=== PATIENT | male | born 1995 ===

== ENCOUNTER 2017-12-21 07:15 | Inpatient (IN) | payer MEDICAID, OTHER ==
[2017-12-21 07:23] VITALS: BMI 19.3
[2017-12-21] MEDS ORDERED: Sodium Chloride 0.9% 1,000 ML IV STA ×3 (07:37→09:54)
--- NOTE | 2017-12-21 08:09 | ED PDOC ---
Arrival/HPI - General Historian: Patient - History of Present Illness Symptom Course: Worsening Activities at Onset: Rest Context: Sitting, Standing <Ilia Vee - Last Filed: 12/21/17 10:41> - History of Present Illness Time/Duration: 24 hours Symptom Onset: Sudden Quality: Cramping Severity Level: Severe Context: Home <Alon Pulliam - Last Filed: 12/21/17 16:04> - General Chief Complaint: Weakness/Neurological Deficit Time Seen by Provider: 12/21/17 07:22 - History of Present Illness Narrative History of Present Illness (Text): 12/21/17 08:05 Patient is a 22M with no PMH who comes to the ED with a CC of feeling weak, fevers and chills. Patient states that yesterday he was feeling fine and playing baseball with his friends at the park. Later in the day he had one episode of diarrhea. He went to sleep and woke up in the morning feeling nauseated. He went to the bathroom, felt weak nauseated, feverish with shaking chills. He also states he has a headache but this is not new for him. He states his legs feel heavy and are difficult to move. (Ilia Vee) Past Medical History - Past History Past History: No Previous - Psychiatric Hx Depression: No Hx Emotional Abuse: No Hx Physical Abuse: No Hx Substance Use: No - Past Surgical History Past Surgical History: No Previous - Anesthesia Hx Anesthesia: No Hx Anesthesia Reactions: No Hx Malignant Hyperthermia: No - Suicidal Assessment Feels Threatened In Home Enviroment: No <Ilia Vee - Last Filed: 12/21/17 10:41> - Provider Review Nursing Documentation Reviewed: Yes - Travel History Have you recently traveled outside [place] w/in the past 3 mons?: No - Infectious Disease Hx of Infectious Diseases: None - Tetanus Immunization Tetanus Immunization: Up to Date <Alon Pulliam - Last Filed: 12/21/17 16:04> Family/Social History - Physician Review Nursing Documentation Reviewed: Yes Family/Social History: Unknown Family HX Smoking Status: Never Smoked Hx Alcohol Use: Yes Frequency of alcohol use: Socially Hx Substance Use: No Hx Substance Use Treatment: No <Ilia Vee - Last Filed: 12/21/17 10:41> Allergies/Home Meds <Ilia Vee - Last Filed: 12/21/17 10:41> <Alon Pulliam - Last Filed: 12/21/17 16:04> Allergies/Adverse Reactions: Allergies No Known Allergies Allergy (Verified 01/18/14 12:14) Home Medications: Home Meds Medication Instructions Recorded Confirmed No Known Home Med [No Known Home 01/18/14 12/21/17 Med] Review of Systems - Review of Systems Constitutional: Fatigue, Fevers Eyes: absent: Photophobia ENT: Normal Respiratory: absent: SOB, Cough, Wheezing Cardiovascular: absent: Chest Pain, Syncope Gastrointestinal: Diarrhea, Nausea. absent: Abdominal Pain, Vomiting, Hematochezia, Hematemesis Genitourinary Male: Normal Musculoskeletal: Neck Pain. absent: Arthralgias, Back Pain Skin: absent: Rash Neurological: Headache Endocrine: Normal Hemo/Lymphatic: Normal Psychiatric: Normal <NandaIlia - Last Filed: 12/21/17 10:41> - Review of Systems Eyes: absent: Vision Changes Neurological: absent: Dizziness, Facial Droop, Disequilibrium <Alon Pulliam - Last Filed: 12/21/17 16:04> Physical Exam Vital Signs Reviewed: Yes Temperature: Afebrile Blood Pressure: Normal Pulse: Regular Respiratory Rate: Normal Appearance: Positive for: Well-Appearing, Non-Toxic, Comfortable Pain Distress: None Mental Status: Positive for: Alert and Oriented X 3 - Systems Exam Head: Present: Atraumatic, Normocephalic Pupils: Present: PERRL Extroacular Muscles: Present: EOMI Conjunctiva: Present: Normal Mouth: Present: Moist Mucous Membranes Neck: Present: Normal Range of Motion Respiratory/Chest: Present: Clear to Auscultation, Good Air Exchange. No: Respiratory Distress, Accessory Muscle Use Cardiovascular: Present: Regular Rate and Rhythm, Normal S1, S2. No: Murmurs Abdomen: Present: Normal Bowel Sounds. No: Tenderness, Distention, Peritoneal Signs Upper Extremity: Present: Normal Inspection. No: Cyanosis, Edema Lower Extremity: Present: Normal Inspection. No: Edema Neurological: Present: GCS=15, CN II-XII Intact, Speech Normal, Other (able to wiggle his toes. Lower extremity 3+,4-/5) Skin: Present: Warm, Dry, Normal Color. No: Rashes Psychiatric: Present: Alert, Oriented x 3, Normal Insight, Normal Concentration <Ilia Vee - Last Filed: 12/21/17 10:41> Vital Signs Temp Pulse Resp BP Pulse Ox 12/21/17 10:14 71 18 118/79 100 12/21/17 07:25 97.5 F L 60 18 109/75 100 Medical Decision Making - Lab Interpretations I have reviewed the lab results: Yes <Ilia Vee - Last Filed: 12/21/17 10:41> Re-evaluation Time: 11:45 Reassessment Condition: Improved - Critical Care Critical Care Minutes: 30 minutes Critical Care Time: Excluding Proc Time - Lab Interpretations Interpretation: Abnormal lab values (elevated CK, elevated LFTs) - RAD Interpretation Flooring Sales Manager: Radiologist <Alon Pulliam - Last Filed: 12/21/17 16:04> ED Course and Treatment: 12/21/17 08:13 22M with lower extremity weakness and generalized fatigue. - cbc, cmp, mag, cpk, vbg, ebv, blood cultures - chest xray, head CT - 2L saline bolus 12/21/17 09:37 - head CT negative - 5000+ CK - patient has rhabdo - additional 1L NS bolus - call put out to hospitalist for admission (Ilia Vee) 12/21/17 08:27 Patient seen with the resident. I performed a physical exam of the patient and discussed their management with resident. I have reviewed the resident note and agree with the assessment and plan of care. Vital signs reviewed: decr BP alert/awake, GCS = 15, oriented x 3, resting in bed, uncomfortable, cooperative , interactive NC/AT PERRLA, EOMI, sclera anicteric, no nystagmus, no photophobia; visual field intact b/l NECK: intact ROM, no midline tenderness, no nuchal rigidity, no meningeal signs CTA b/l, no w/r/r +S1, +S2, no m/r/r +BS, soft/nd/nt, well nourished patient; thin male, no gaiens's sign, no mcburney's point tenderness, no organomeagly noted ext: intact ROM, strength 5/5 grossly intact in all limbs, neurovasc intact b/l SKIN: cap refill < 1 sec, no ulcerations, no petechiae, no rashes NEURO: CNII-XII WNL, no facial asymmetries, no slurr speech, oriented x 3; strength lower ext +3-4/5 NIH stroke scale ~ 2 Impression: lower extremity weakness and generalized fatigue. I have considered all the differential diagnosis regarding the patient's chief medical complaints/clinical findings, including but are not limited to: lower extremity weakness and generalized fatigue; r/o infection; unlikely neurologic cause; r/o musculoskeletal A/P: lower extremity weakness and generalized fatigue. -- Chest X-ray -- Head CT -- labs -- Supportive Care -- Observe 12/21/17 10:00 pt felt improved with fluids pt is now able to move all limbs with ease and also able to ambulate with an abnl elevated CK, pt likely with rhabdomyolysis, will recommend continued fluids and will recommend patient for admission pt is made aware of his medical results agrees with admission/observation HEAD CT Dictator : Jack Angel MD Report Date : 12/21/2017 09:34:06 Impression: No acute findings 12/21/17 10:39: Case discussed in detail with Dr. Couch, hospitalists utility person, made aware, agrees with admission 1130 pt is comfortable pt's vital signs are steady pt is made aware of his medical results agrees with admission (Alon Pulliam) - Critical Care Narrative Critical Care (Text): 12/21/17 15:59 critical care time: 30min, excluding procedure time, excluding time teaching residents/students/mid-level providers; including initial eval/diagnosis, diagnostic interpretation, re-eval, consultations, final disposition (Alon Pulliam) - Lab Interpretations Lab Results: 12/21/17 08:06 12/21/17 08:55 Lab Results 12/21/17 10:07: Urine Opiates Screen Negative, Urine Methadone Screen Negative, Ur Barbiturates Screen Negative, Ur Phencyclidine Scrn Negative, Ur Amphetamines Screen Negative, U Benzodiazepines Scrn Negative, U Oth Cocaine Metabols Negative, U Cannabinoids Screen Negative 12/21/17 10:07: Urine Color Yellow, Urine Appearance Sl cloudy, Urine pH 7.0, Ur Specific Cashiers 1.020, Urine Protein Trace H, Urine Glucose (UA) Negative, Urine Ketones Negative, Urine Blood Trace-lysed H, Urine Nitrate Negative, Urine Bilirubin Negative, Urine Urobilinogen 0.2, Ur Leukocyte Esterase Small H , Urine RBC 0 - 2, Urine WBC Tntc, Ur Epithelial Cells 1 - 3, Urine Bacteria Trace, Urine Other Mucus 12/21/17 08:55: TSH 3rd Generation 1.61 12/21/17 08:55: Sodium 142, Chloride 105, Potassium 3.8, Carbon Dioxide 28, Anion Gap 12, BUN 14, Creatinine 0.8, Est GFR ( Amer) > 60, Est GFR (Non- Af Amer) > 60, Random Glucose 87, Calcium 9.6, Total Bilirubin 1.1, AST 123 H, ALT 57 H, Alkaline Phosphatase 79, Total Creatine Kinase 5890 H, CK-MB (CK-2) 2.9, CK-MB (CK-2) % Cancelled, Total Protein 7.7, Albumin 4.4, Globulin 3.3, Albumin/Globulin Ratio 1.3, Lipase 80 12/21/17 08:06: WBC 8.5, RBC 5.03, Hgb 14.1, Hct 41.4 L, MCV 82.3, MCH 28.0, MCHC 34.1, RDW 13.1, Plt Count 247, MPV 11.4 H, Gran % 48.5 L, Lymph % (Auto) 38.5 H, Metcalfe % (Auto) 8.6 H, Eos % (Auto) 4.2, Baso % (Auto) 0.2, Gran # 4.12, Lymph # (Auto) 3.3, Metcalfe # (Auto) 0.7 H, Eos # (Auto) 0.4, Baso # (Auto) 0.02 12/21/17 08:00: pO2 27 L, VBG pH 7.32, VBG pCO2 56.0, VBG HCO3 28.9 H, VBG Total CO2 30.6 H, VBG O2 Sat (Calc) 53.9, VBG Base Excess 1.6, VBG Potassium 4.0 , Sodium 139.0, Chloride 105.0, Glucose 81, Lactate 1.5, FiO2 21.0, Venous Blood Potassium 4.0 - RAD Interpretation Narrative RAD Interpretations (Text): 12/21/17 16:02 CXR - NAD Head Ct - no acute bleed/masses, as per radiology (Alon Pulliam) Radiology Orders: 12/21/17 07:48 HEAD W/O CONTRAST [CT] Stat 12/21/17 08:15 CHEST PORTABLE [RAD] Stat - Medication Orders Current Medication Orders: Sodium Chloride (Sodium Chloride 0.9%) 1,000 mls @ 300 mls/hr IV .Q3H20M GERARDO Last Admin: 12/21/17 12:37 Dose: 300 mls/hr eMAR Start Stop Document 12/21/17 12:37 GMD (Rec: 12/21/17 12:37 GMD [id number]) Intravenous Solution Start Date 12/21/17 Start Time 12:37 Pantoprazole Sodium (Protonix Ec Tab) 40 mg PO DAILY GERARDO Discontinued Medications Famotidine (Pepcid) 20 mg IVP STAT STA Stop: 12/21/17 07:39 Last Admin: 12/21/17 08:20 Dose: 20 mg IVP Administration Document 12/21/17 08:20 RG (Rec: 12/21/17 08:47 RG [id number]) Charges for Administration # of IVP Administrations 1 Sodium Chloride (Sodium Chloride 0.9%) 1,000 mls @ 999 mls/hr IV .Q1H1M STA Stop: 12/21/17 08:37 Last Admin: 12/21/17 08:26 Dose: 999 mls/hr eMAR Start Stop Document 12/21/17 08:26 RG (Rec: 12/21/17 08:45 RG [id number]) Intravenous Solution Start Date 12/21/17 Start Time 08:26 Sodium Chloride (Sodium Chloride 0.9%) 1,000 mls @ 999 mls/hr IV .Q1H1M STA Stop: 12/21/17 08:38 Last Admin: 12/21/17 08:27 Dose: 999 mls/hr eMAR Start Stop Document 12/21/17 08:27 RG (Rec: 12/21/17 08:46 RG [id number]) Intravenous Solution Start Date 12/21/17 Start Time 08:27 Sodium Chloride (Sodium Chloride 0.9%) 1,000 mls @ 999 mls/hr IV .Q1H1M STA Stop: 12/21/17 10:54 Last Admin: 12/21/17 11:08 Dose: 999 mls/hr eMAR Start Stop Document 12/21/17 11:08 GMD (Rec: 12/21/17 11:08 GMD [id number]) Intravenous Solution Start Date 12/21/17 Start Time 11:08 End Date 12/21/17 End time 12:09 Total Infusion Time 61 Ketorolac Tromethamine (Toradol) 15 mg IVP STAT STA Stop: 12/21/17 09:21 Last Admin: 12/21/17 09:30 Dose: Ondansetron HCl (Zofran Inj) 4 mg IVP STAT STA Stop: 12/21/17 07:39 Last Admin: 12/21/17 08:22 Dose: 4 mg IVP Administration Document 12/21/17 08:22 RG (Rec: 12/21/17 08:48 RG [id number]) Charges for Administration # of IVP Administrations 1 - PA / CULINARY SPECIALIST / Resident Statement MD/DO has reviewed & agrees with the documentation as recorded. MD/ has examined the patient and agrees with the treatment plan. <Ilia Vee - Last Filed: 12/21/17 10:41> - Scribe Statement The provider has reviewed the documentation as recorded by the Scribe <Alon Pulliam - Last Filed: 12/21/17 16:04> - Scribe Statement Danielle Monte Provider Scribe Attestation: All medical record entries made by the Scribe were at my direction and personally dictated by me. I have reviewed the chart and agree that the record accurately reflects my personal performance of the history, physical exam, medical decision making, and the department course for this patient. I have also personally directed, reviewed, and agree with the discharge instructions and disposition. (Alon Pulliam) Disposition/Present on Arrival - Present on Arrival Any Indicators Present on Arrival: No History of DVT/PE: No History of Uncontrolled Diabetes: No Urinary Catheter: No History of Decub. Ulcer: No History Surgical Site Infection Following: None - Disposition Have Diagnosis and Disposition been Completed?: Yes Disposition Time: 09:52 Patient Plan: Observation <Ilia Vee - Last Filed: 12/21/17 10:41> - Disposition Patient Plan: Admission <Alon Pulliam - Last Filed: 12/21/17 16:04> - Disposition Diagnosis: Rhabdomyolysis, Dehydration, Weakness Disposition: HOSPITALIZED Patient Problems: Current Active Problems Problem Status Onset Rhabdomyolysis Acute Condition: STABLE
[2017-12-21 08:29] LABS: VENOUS BLOOD GAS BASE EXCESS 1.6 mmol/L (0.0-2.0); VENOUS BLOOD GAS PO2 27 mm/Hg (30-55); VENOUS BLOOD PH 7.32 (7.32-7.43)
[2017-12-21 08:43] LABS: BASO # 0.02 K/mm3 (0.0-2.0); BASO % 0.2 % (0.0-3.0); EOS # 0.4 (0.0-0.7); EOS % 4.2 % (1.5-5.0); GRAN # 4.12 (1.4-6.5); GRAN % 48.5 % (50.0-68.0); HEMOGLOBIN 14.1 g/dL (14.0-18.0); LYMPH # 3.3 (1.2-3.4); LYMPH % 38.5 % (22.0-35.0); MEAN CELL VOLUME 82.3 fl (80.0-105.0); MEAN CORPUSCULAR HGB CONC 34.1 g/dl (31.0-37.0); MEAN PLATELET VOLUME 11.4 fl (7.0-11.0); MONO # 0.7 (0.1-0.6); MONO % 8.6 % (1.0-6.0); RBC 5.03 10^6/uL (3.5-6.1); RED CELL DISTRIBUTION WIDTH 13.1 % (11.5-14.5); WHITE BLOOD COUNT 8.5 10^3/ul (4.5-11.0)
[2017-12-21 09:19] LABS: ALB/GLOB RATIO 1.3 (1.1-1.8); ALBUMIN 4.4 g/dL (3.0-4.8); ALT/SGPT 57 U/L (7-56); AST/SGOT 123 U/L (17-59); BLOOD UREA NITROGEN 14 mg/dL (7-21); CALCIUM 9.6 mg/dL (8.4-10.5); GFR AFRICAN-AMERICAN > 60; GFR NON-AFRICAN AMERICAN > 60; LIPASE 80 U/L (23-300)
--- NOTE | 2017-12-21 09:35 | CT ---
CT of the head without contrast History. Lower extremity weakness. Lethargy. Comments. CT of the head was performed without IV contrast. The brain parenchyma is normal. There is no evidence of infarct or hemorrhage. The paranasal sinuses are normal. There are no bony abnormalities. Impression: No acute findings
--- NOTE | 2017-12-21 09:41 | RAD ---
Portable chest History. Weakness, lethargy Comments. A portable film was obtained at 8:24 a.m. 12/21/2017. The heart and mediastinum are normal in size per the lungs are clear. Impression: No active disease
[2017-12-21 09:50] LABS: CK-MB 2.9 ng/mL (0.0-3.6)
[2017-12-21 10:20] LABS: URINE APPEARANCE SL CLOUDY (CLEAR); URINE BILIRUBIN NEGATIVE (NEGATIVE); URINE BLOOD TRACE-LYSED (NEGATIVE); URINE COLOR YELLOW (YELLOW); URINE GLUCOSE (UA) NEGATIVE (NEGATIVE); URINE LEUKOCYTE ESTERASE SMALL Leu/uL (NEGATIVE); URINE PROTEIN TRACE mg/dL (<30 mg/dL); URINE UROBILINOGEN 0.2 E.U./dL (<1 E.U./dL)
[2017-12-21 10:32] LABS: URINE RBC 0 - 2 /hpf (0-2); URINE WBC TNTC /hpf (0-6)
[2017-12-21 10:33] LABS: URINE BACTERIA TRACE (NEG)
[2017-12-21 10:42] LABS: BARBITURATES, UR NEGATIVE (NEGATIVE); BENZODIAZEPINES, UR NEGATIVE (NEGATIVE); OPIATES, UR NEGATIVE (NEGATIVE); PHENCYCLIDINE, UR NEGATIVE (NEGATIVE)
[2017-12-21] MEDS: Sodium Chloride 0.9% 1,000 ML IV SCH ×2 (12:37→19:12)
--- NOTE | 2017-12-21 13:46 | CP.PCM.HP ---
<Krystina Downing - Last Filed: 12/21/17 13:38> History of Present Illness - History of Present Illness History of Present Illness: PGY-2 H&P for hospitalist service 22 yo male with no PMH who comes to the ED with a complaint of feeling weak, fevers and chills. Patient states that he woke and started feeling weak. He went to the bathroom, felt nauseated, feverish with shaking chills. He also states he has a headache but this is not new for him. He states his legs feel heavy and are difficult to move. He reports one episode of diarrhea 2 days ago. Patient states that yesterday he was feeling fine and playing baseball with his friends at the park for about 3 hours. He states that that he has not done anything out of the ordinary over the past few days. He denies sick contacts, recent illnesses of recent travel. Patient states that after receiving fluids in the ED he feels better and can move all extremities. PMH: denies PSH: Denies social history: denies smoking, illicit drug use, occasional alcohol use, last drink was 1 week ago family history: denies allergy: nkda Present on Admission - Present on Admission Any Indicators Present on Admission: No Review of Systems - Review of Systems All systems: reviewed and no additional remarkable complaints except Past Patient History - Past Social History Smoking Status: Never Smoked - PSYCHIATRIC Hx Depression: No Hx Emotional Abuse: No Hx Physical Abuse: No Hx Substance Use: No - SURGICAL HISTORY Hx Surgeries: No - ANESTHESIA Hx Anesthesia: No Hx Anesthesia Reactions: No Hx Malignant Hyperthermia: No Meds Allergies/Adverse Reactions: Allergies Allergy/AdvReac Type Severity Reaction Status Date / Time No Known Allergies Allergy Verified 01/18/14 12:14 Physical Exam - Constitutional Appears: Well, No Acute Distress - Head Exam Head Exam: ATRAUMATIC, NORMAL INSPECTION, NORMOCEPHALIC - Eye Exam Eye Exam: EOMI, Normal appearance - ENT Exam ENT Exam: Mucous Membranes Moist - Respiratory Exam Respiratory Exam: Clear to Auscultation Bilateral, NORMAL BREATHING PATTERN. absent: Rhonchi, Wheezes, Respiratory Distress - Cardiovascular Exam Cardiovascular Exam: REGULAR RHYTHM, +S1, +S2. absent: Tachycardia, Diastolic murmur, Systolic Murmur - GI/Abdominal Exam GI & Abdominal Exam: Normal Bowel Sounds, Soft. absent: Distended, Firm, Guarding, Tenderness - Extremities Exam Extremities exam: Positive for: normal inspection. Negative for: pedal edema, tenderness - Neurological Exam Neurological exam: Alert, Oriented x3 - Expanded Neurological Exam Expanded Patient oriented to: person, place, time Neuro motor strength exam: Left Upper Extremity: 5, Right Upper Extremity: 5, Left Lower Extremity: 5, Right Lower Extremity: 5 - Skin Skin Exam: Dry, Intact, Normal Color, Warm Results - Vital Signs Recent Vital Signs: Last Vital Signs Temp 97.5 F L 12/21/17 07:25 Pulse 71 12/21/17 10:14 Resp 18 12/21/17 10:14 BP 118/79 12/21/17 10:14 Pulse Ox 100 12/21/17 10:14 - Labs Result Diagrams: 12/21/17 08:06 12/21/17 08:55 Assessment & Plan - Assessment and Plan (Free Text) Assessment: 22 yo male with no PMH who is admitted for rhabdomyolysis Plan: rhabdomyolysis - patient CK level in ED was 5890 - he received 3 liter bolus in ED - will continue IVF NS @300cc/ho - repeat CMP and ck after 1 liter of IVF GI ppx- protonix DVT- activity as tolerated <Maida Couch - Last Filed: 12/21/17 16:24> Results - Vital Signs Recent Vital Signs: Last Vital Signs Temp 97.5 F L 12/21/17 07:25 Pulse 71 12/21/17 10:14 Resp 18 12/21/17 10:14 BP 118/79 12/21/17 10:14 Pulse Ox 100 12/21/17 10:14 - Labs Result Diagrams: 12/21/17 08:06 12/21/17 08:55 Attending/Attestation - Attestation I have personally seen and examined this patient.: Yes I have fully participated in the care of the patient.: Yes I have reviewed all pertinent clinical information: Yes Notes (Text): 12/21/17 16:20 Patient was seen and examined with biomedical scientist. 22 yrs old male with no PMH is admitted with Rhabdomylosis, renal functions are normal, will continue IV fluid and will follow up BUN /Creatinin and electrolyte. Etiology of Rhabdomylosis is due to musscle breakdown during basket ball sport . Elevated LFT are due to Rhbdomylosis,(Patient denies alcohol abuse ) will repeat level after IV hydration, Management plan was discussed in detail with patient Education was provided.
[2017-12-21 17:32] LABS: ALB/GLOB RATIO 1.3 (1.1-1.8); ALBUMIN 3.9 g/dL (3.0-4.8); ALT/SGPT 47 U/L (7-56); AST/SGOT 109 U/L (17-59); BLOOD UREA NITROGEN 10 mg/dL (7-21); CALCIUM 9.5 mg/dL (8.4-10.5); GFR AFRICAN-AMERICAN > 60; GFR NON-AFRICAN AMERICAN > 60
--- NOTE | 2017-12-21 19:31 | CARD ---
APPROVED REPORT EKG Measurement Heart [id number] <Conclusion> Sinus bradycardia with sinus arrhythmia with 1st degree AV block ST elevation, probably due to early repolarization Borderline ECG
[2017-12-21 23:16] VITALS: RESP 16
[2017-12-22] MEDS: Sodium Chloride 0.9% 1,000 ML IV SCH (05:36)
[2017-12-22 06:38] LABS: BASO # 0.01 K/mm3 (0.0-2.0); BASO % 0.1 % (0.0-3.0); EOS # 0.4 (0.0-0.7); EOS % 5.6 % (1.5-5.0); GRAN # 2.83 (1.4-6.5); GRAN % 41.6 % (50.0-68.0); LYMPH # 3.2 (1.2-3.4); LYMPH % 46.5 % (22.0-35.0); MEAN CELL VOLUME 83.4 fl (80.0-105.0); MEAN CORPUSCULAR HEMOGLOBIN 27.8 pg (25.0-35.0); MEAN CORPUSCULAR HGB CONC 33.3 g/dl (31.0-37.0); MEAN PLATELET VOLUME 11.1 fl (7.0-11.0); MONO # 0.4 (0.1-0.6); MONO % 6.2 % (1.0-6.0); RBC 4.28 10^6/uL (3.5-6.1); RED CELL DISTRIBUTION WIDTH 13.5 % (11.5-14.5); WHITE BLOOD COUNT 6.8 10^3/ul (4.5-11.0)
[2017-12-22 07:01] LABS: HEMOGLOBIN 11.9 g/dL (14.0-18.0)
[2017-12-22 07:09] LABS: ALB/GLOB RATIO 1.2 (1.1-1.8); ALBUMIN 3.2 g/dL (3.0-4.8); ALT/SGPT 50 U/L (7-56); AST/SGOT 74 U/L (17-59); BLOOD UREA NITROGEN 4 mg/dL (7-21); CALCIUM 8.9 mg/dL (8.4-10.5); GFR AFRICAN-AMERICAN > 60; GFR NON-AFRICAN AMERICAN > 60
[2017-12-22 07:55] LABS: CK-MB 1.3 ng/mL (0.0-3.6)
[2017-12-22 08:05] VITALS: BP 130/76; PULSE 62; TEMP 98.6; O2SAT 99
[2017-12-22] MEDS ORDERED: Pantoprazole 40 mg EC Tab PO SCH (10:00)
[2017-12-22 12:47] LABS: HEPATITIS B SURFACE AG Negative (NEGATIVE)
[2017-12-22 12:53] LABS: HEPATITIS A IGM NEGATIVE (NEGATIVE); HEPATITIS B CORE AB NEGATIVE (NEGATIVE)
[2017-12-22 13:05] LABS: HEPATITIS C ANTIBODY NEGATIVE (NEGATIVE)
--- NOTE | 2017-12-22 21:19 | CP.PCM.DIS ---
<FernandaMarisel - Last Filed: 12/22/17 21:13> Provider - Provider Date of Admission: 12/21/17 10:41 Attending physician: Maida Couch MD Primary care physician: NO PRIMARY CARE PROVIDER Time Spent in preparation of Discharge (in minutes): 35 Diagnosis - Discharge Diagnosis (1) Rhabdomyolysis Status: Acute Priority: Medium Hospital Course - Lab Results Lab Results: Most Recent Lab Values WBC 6.8 10^3/ul (4.5-11.0) 12/22/17 06:27 RBC 4.28 10^6/uL (3.5-6.1) 12/22/17 06:27 Hgb 11.9 g/dL (14.0-18.0) L D 12/22/17 06:27 Hct 35.7 % (42.0-52.0) L 12/22/17 06:27 MCV 83.4 fl (80.0-105.0) 12/22/17 06:27 MCH 27.8 pg (25.0-35.0) 12/22/17 06:27 MCHC 33.3 g/dl (31.0-37.0) 12/22/17 06:27 RDW 13.5 % (11.5-14.5) 12/22/17 06:27 Plt Count 222 10^3/uL (120.0-450.0) 12/22/17 06:27 MPV 11.1 fl (7.0-11.0) H 12/22/17 06:27 Gran % 41.6 % (50.0-68.0) L 12/22/17 06:27 Lymph % (Auto) 46.5 % (22.0-35.0) H 12/22/17 06:27 [place] % (Auto) 6.2 % (1.0-6.0) H 12/22/17 06:27 Eos % (Auto) 5.6 % (1.5-5.0) H 12/22/17 06:27 Baso % (Auto) 0.1 % (0.0-3.0) 12/22/17 06:27 Gran # 2.83 (1.4-6.5) 12/22/17 06:27 Lymph # (Auto) 3.2 (1.2-3.4) 12/22/17 06:27 [place] # (Auto) 0.4 (0.1-0.6) 12/22/17 06:27 Eos # (Auto) 0.4 (0.0-0.7) 12/22/17 06:27 Baso # (Auto) 0.01 K/mm3 (0.0-2.0) 12/22/17 06:27 pO2 27 mm/Hg (30-55) L 12/21/17 08:00 VBG pH 7.32 (7.32-7.43) 12/21/17 08:00 VBG pCO2 56.0 (40-60) 12/21/17 08:00 VBG HCO3 28.9 mmol/l (21-28) H 12/21/17 08:00 VBG Total CO2 30.6 mmol.L (22-28) H 12/21/17 08:00 VBG O2 Sat (Calc) 53.9 % (40-65) 12/21/17 08:00 VBG Base Excess 1.6 mmol/L (0.0-2.0) 12/21/17 08:00 VBG Potassium 4.0 mmol/L (3.6-5.2) 12/21/17 08:00 Sodium 139.0 mmol/L (132-148) 12/21/17 08:00 Chloride 105.0 mmol/L (98-107) 12/21/17 08:00 Glucose 81 mg/dl (75-110) 12/21/17 08:00 Lactate 1.5 mmol/L (0.7-2.1) 12/21/17 08:00 FiO2 21.0 % 12/21/17 08:00 Sodium 143 mmol/L (132-148) 12/22/17 06:27 Potassium 3.8 mmol/L (3.6-5.0) 12/22/17 06:27 Chloride 112 mmol/L (98-107) H 12/22/17 06:27 Carbon Dioxide 24 mmol/L (21-33) 12/22/17 06:27 Anion Gap 10 (10-20) 12/22/17 06:27 BUN 4 mg/dL (7-21) L 12/22/17 06:27 Creatinine 0.7 mg/dl (0.8-1.5) L 04/03/18 06:27 Est GFR ( Amer) > 60 12/22/17 06:27 Est GFR (Non-Af Amer) > 60 12/22/17 06:27 Random Glucose 86 mg/dL (70-110) 12/22/17 06:27 Calcium 8.9 mg/dL (8.4-10.5) 12/22/17 06:27 Total Bilirubin 0.8 mg/dL (0.2-1.3) 12/22/17 06:27 AST 74 U/L (17-59) H D 12/22/17 06:27 ALT 50 U/L (7-56) 12/22/17 06:27 Alkaline Phosphatase 61 U/L (38-126) 12/22/17 06:27 Total Creatine Kinase 2790 U/L (35-230) H 12/22/17 06:27 CK-MB (CK-2) 1.3 ng/mL (0.0-3.6) 12/22/17 06:27 CK-MB (CK-2) % Cancelled 12/21/17 08:55 Total Protein 6.0 g/dL (5.8-8.3) 12/22/17 06:27 Albumin 3.2 g/dL (3.0-4.8) 12/22/17 06:27 Globulin 2.7 gm/dL 12/22/17 06:27 Albumin/Globulin Ratio 1.2 (1.1-1.8) 12/22/17 06:27 Lipase 80 U/L (23-300) 12/21/17 08:55 TSH 3rd Generation 1.61 mIU/mL (0.46-4.68) 12/21/17 08:55 Venous Blood Potassium 4.0 mmol/L (3.6-5.2) 12/21/17 08:00 Urine Color Yellow (YELLOW) 12/21/17 10:07 Urine Appearance Sl cloudy (CLEAR) 12/21/17 10:07 Urine pH 7.0 (4.7-8.0) 12/21/17 10:07 Ur Specific [place] 1.020 (1.005-1.035) 12/21/17 10:07 Urine Protein Trace mg/dL (<30 mg/dL) H 12/21/17 10:07 Urine Glucose (UA) Negative mg/dL (NEGATIVE) 12/21/17 10:07 Urine Ketones Negative mg/dL (NEGATIVE) 12/21/17 10:07 Urine Blood Trace-lysed (NEGATIVE) H 12/21/17 10:07 Urine Nitrate Negative (NEGATIVE) 12/21/17 10:07 Urine Bilirubin Negative (NEGATIVE) 12/21/17 10:07 Urine Urobilinogen 0.2 E.U./dL (<1 E.U./dL) 12/21/17 10:07 Ur Leukocyte Esterase Small Fidel/uL (NEGATIVE) H 12/21/17 10:07 Urine RBC 0 - 2 /hpf (0-2) 12/21/17 10:07 Urine WBC Tntc /hpf (0-6) 12/21/17 10:07 Ur Epithelial Cells 1 - 3 /hpf (0-5) 12/21/17 10:07 Urine Bacteria Trace (NEG) 12/21/17 10:07 Urine Other Mucus 12/21/17 10:07 Urine Opiates Screen Negative (NEGATIVE) 12/21/17 10:07 Urine Methadone Screen Negative (NEGATIVE) 12/21/17 10:07 Ur Barbiturates Screen Negative (NEGATIVE) 12/21/17 10:07 Ur Phencyclidine Scrn Negative (NEGATIVE) 12/21/17 10:07 Ur Amphetamines Screen Negative (NEGATIVE) 12/21/17 10:07 U Benzodiazepines Scrn Negative (NEGATIVE) 12/21/17 10:07 U Oth Cocaine Metabols Negative (NEGATIVE) 12/21/17 10:07 U Cannabinoids Screen Negative (NEGATIVE) 12/21/17 10:07 Hepatitis A IgM Ab Negative (NEGATIVE) 12/22/17 06:27 Hep Bs Antigen Negative (NEGATIVE) 12/22/17 06:27 Hep B Core IgM Ab Negative (NEGATIVE) 12/22/17 06:27 Hepatitis C Antibody Negative (NEGATIVE) 12/22/17 06:27 Monoscreen Negative (Negative) 12/21/17 10:27 HIV 1&2 Ag/Ab, 4th Gen Nonreactive (Nonreactive) 12/21/17 08:55 - Hospital Course Hospital Course: 22 yo male with no PMH who initially presented to the ED with a complaint of feeling weak, fevers and chills. Patient was found to have elevated CPK, without apparent acute kidney injury, and was admitted for rhabdomyolysis. Patient was treated with IV fluids, and further infectious workup was negative. Today, patient feels much better overall. His CPK had decreased by over 50%. He denies fever, chills, nausea, vomiting, diarrhea, constipation, abdominal pain, dysuria, hematuria. His body aches have improved significantly. He was encouraged to drink 2-3 liters of water daily. He was instructed to follow up with his PMD or with the [facility] clinic within one week. All questions were answered to his satisfaction, and he was discharged to home. Discharge Exam - Head Exam Head Exam: ATRAUMATIC, NORMAL INSPECTION, NORMOCEPHALIC - Eye Exam Eye Exam: EOMI, Normal appearance, PERRL. absent: Periorbital swelling Pupil Exam: NORMAL ACCOMODATION - ENT Exam ENT Exam: Mucous Membranes Moist - Neck Exam Neck exam: Normal Inspection - Respiratory Exam Respiratory Exam: Clear to PA & Lateral, NORMAL BREATHING PATTERN. absent: Rales - Cardiovascular Exam Cardiovascular Exam: RRR, +S1, +S2 - GI/Abdominal Exam GI & Abdominal Exam: Normal Bowel Sounds, Soft. absent: Tenderness - Extremities Exam Extremities exam: full ROM, normal inspection Additional comments: Minimal tenderness in large muscle groups - Back Exam Back exam: absent: CVA tenderness (L), CVA tenderness (R) - Neurological Exam Neurological exam: Alert, CN II-XII Intact, Oriented x3 - Psychiatric Exam Psychiatric exam: Normal Affect, Normal Mood - Skin Skin Exam: Dry, Intact, Normal Color Discharge Plan - Follow Up Plan Condition: STABLE Disposition: HOME/ ROUTINE Instructions: Rhabdomyolysis (DC), Dehydration (DC) Additional Instructions: You are being discharged to home. Follow up with primary care doctor in 3-5 days Drink 2-3 liters of water daily; do not drink any alcohol Referrals: PCP,NO [Primary Care Provider] - <Maida Couch - Last Filed: 12/23/17 15:31> Provider - Provider Date of Admission: 12/21/17 10:41 Attending physician: Maida Couch MD Primary care physician: NO PRIMARY CARE PROVIDER Hospital Course - Lab Results Lab Results: Most Recent Lab Values WBC 6.8 10^3/ul (4.5-11.0) 12/22/17 06:27 RBC 4.28 10^6/uL (3.5-6.1) 12/22/17 06:27 Hgb 11.9 g/dL (14.0-18.0) L D 12/22/17 06:27 Hct 35.7 % (42.0-52.0) L 12/22/17 06:27 MCV 83.4 fl (80.0-105.0) 12/22/17 06: MCH 27.8 pg (25.0-35.0) 12/22/17 06: MCHC 33.3 g/dl (31.0-37.0) 12/22/17 06: RDW 13.5 % (11.5-14.5) 12/22/17: Plt Count 222 10^3/uL (120.0-450.0) 12/22/17 06: MPV 11.1 fl (7.0-11.0) H 12/22/17 06:27 Gran % 41.6 % (50.0-68.0) L 12/22/17 06: Lymph % (Auto) 46.5 % (22.0-35.0) H 12/22/17 06:27 [place] % (Auto) 6.2 % (1.0-6.0) H 12/22/17 06:27 Eos % (Auto) 5.6 % (1.5-5.0) H 12/22/17 06:27 Baso % (Auto) 0.1 % (0.0-3.0) 12/22/17 06: Gran # 2.83 (1.4-6.5) 12/22/17 06: Lymph # (Auto) 3.2 (1.2-3.4) 12/22/17 06:27 [place] # (Auto) 0.4 (0.1-0.6) 12/22/17 06:27 Eos # (Auto) 0.4 (0.0-0.7) 12/22/17 06: Baso # (Auto) 0.01 K/mm3 (0.0-2.0) 12/22/17 06: pO2 27 mm/Hg (30-55) L 12/21/17 08:00 VBG pH 7.32 (7.32-7.43) 12/21/17 08:00 VBG pCO2 56.0 (40-60) 12/21/17 08:00 VBG HCO3 28.9 mmol/l (21-28) H 12/21/17 08:00 VBG Total CO2 30.6 mmol.L (22-28) H 12/21/17 08:00 VBG O2 Sat (Calc) 53.9 % (40-65) 12/21/17 08:00 VBG Base Excess 1.6 mmol/L (0.0-2.0) 12/21/17 08:00 VBG Potassium 4.0 mmol/L (3.6-5.2) 12/21/17 08:00 Sodium 139.0 mmol/L (132-148) 12/21/17 08:00 Chloride 105.0 mmol/L (98-107) 12/21/17 08:00 Glucose 81 mg/dl (75-110) 12/21/17 08:00 Lactate 1.5 mmol/L (0.7-2.1) 12/21/17 08:00 FiO2 21.0 % 12/21/17 08:00 Sodium 143 mmol/L (132-148) 12/22/17 06:27 Potassium 3.8 mmol/L (3.6-5.0) 12/22/17 06:27 Chloride 112 mmol/L (98-107) H 12/22/17 06:27 Carbon Dioxide 24 mmol/L (21-33) 12/22/17 06:27 Anion Gap 10 (10-20) 12/22/17 06:27 BUN 4 mg/dL (7-21) L 12/22/17 06:27 Creatinine 0.7 mg/dl (0.8-1.5) L 12/22/17 06:27 Est GFR ( Amer) > 60 12/22/17 06:27 Est GFR (Non-Af Amer) > 60 12/22/17 06:27 Random Glucose 86 mg/dL (70-110) 12/22/17 06:27 Calcium 8.9 mg/dL (8.4-10.5) 12/22/17 06:27 Total Bilirubin 0.8 mg/dL (0.2-1.3) 12/22/17 06:27 AST 74 U/L (17-59) H D 12/22/17 06:27 ALT 50 U/L (7-56) 12/22/17 06:27 Alkaline Phosphatase 61 U/L (38-126) 12/22/17 06:27 Total Creatine Kinase 2790 U/L (35-230) H 12/22/17 06:27 CK-MB (CK-2) 1.3 ng/mL (0.0-3.6) 12/22/17 06:27 CK-MB (CK-2) % Cancelled 12/21/17 08:55 Total Protein 6.0 g/dL (5.8-8.3) 12/22/17 06:27 Albumin 3.2 g/dL (3.0-4.8) 12/22/17 06:27 Globulin 2.7 gm/dL 12/22/17 06:27 Albumin/Globulin Ratio 1.2 (1.1-1.8) 12/22/17 06:27 Lipase 80 U/L (23-300) 12/21/17 08:55 TSH 3rd Generation 1.61 mIU/mL (0.46-4.68) 12/21/17 08:55 Venous Blood Potassium 4.0 mmol/L (3.6-5.2) 12/21/17 08:00 Urine Color Yellow (YELLOW) 12/21/17 10:07 Urine Appearance Sl cloudy (CLEAR) 12/21/17 10:07 Urine pH 7.0 (4.7-8.0) 12/21/17 10:07 Ur Specific [place] 1.020 (1.005-1.035) 12/21/17 10:07 Urine Protein Trace mg/dL (<30 mg/dL) H 12/21/17 10:07 Urine Glucose (UA) Negative mg/dL (NEGATIVE) 12/21/17 10:07 Urine Ketones Negative mg/dL (NEGATIVE) 12/21/17 10:07 Urine Blood Trace-lysed (NEGATIVE) H 12/21/17 10:07 Urine Nitrate Negative (NEGATIVE) 12/21/17 10:07 Urine Bilirubin Negative (NEGATIVE) 12/21/17 10:07 Urine Urobilinogen 0.2 E.U./dL (<1 E.U./dL) 12/21/17 10:07 Ur Leukocyte Esterase Small Fidel/uL (NEGATIVE) H 12/21/17 10:07 Urine RBC 0 - 2 /hpf (0-2) 12/21/17 10:07 Urine WBC Tntc /hpf (0-6) 12/21/17 10:07 Ur Epithelial Cells 1 - 3 /hpf (0-5) 12/21/17 10:07 Urine Bacteria Trace (NEG) 12/21/17 10:07 Urine Other Mucus 12/21/17 10:07 Urine Opiates Screen Negative (NEGATIVE) 12/21/17 10:07 Urine Methadone Screen Negative (NEGATIVE) 12/21/17 10:07 Ur Barbiturates Screen Negative (NEGATIVE) 12/21/17 10:07 Ur Phencyclidine Scrn Negative (NEGATIVE) 12/21/17 10:07 Ur Amphetamines Screen Negative (NEGATIVE) 12/21/17 10:07 U Benzodiazepines Scrn Negative (NEGATIVE) 12/21/17 10:07 U Oth Cocaine Metabols Negative (NEGATIVE) 12/21/17 10:07 U Cannabinoids Screen Negative (NEGATIVE) 12/21/17 10:07 Hepatitis A IgM Ab Negative (NEGATIVE) 12/22/17 06:27 Hep Bs Antigen Negative (NEGATIVE) 12/22/17 06:27 Hep B Core IgM Ab Negative (NEGATIVE) 12/22/17 06:27 Hepatitis C Antibody Negative (NEGATIVE) 12/22/17 06:27 Monoscreen Negative (Negative) 12/21/17 10:27 HIV 1&2 Ag/Ab, 4th Gen Nonreactive (Nonreactive) 12/21/17 08:55 Attending/Attestation - Attestation I have personally seen and examined this patient.: Yes I have fully participated in the care of the patient.: Yes I have reviewed all pertinent clinical information, including history, physical exam and plan: Yes Notes (Text): 12/23/17 15:27 Medical record note made by the resident after discussion with my direction and input after the patient was personally seen and examined by me. I have reviewed the chart and agree that the record accurately reflects by personal performance of the history, physical exam, data review, and medical decision-making, in the course for the patient. I have also personally directed the plan of care. 22 yrs old male with no PMH was admitted with Rhabdomylosis, renal functions are normal, he was treated with IV fluid ,CPK level has improved, renal functions remain stable.Etiology of Rhabdomylosis is due to musscle breakdown during basket ball sport activity over week end . Elevated LFT are also due to Rhbdomylosis,(Patient denies alcohol abuse ) , improving with IV hydration. Patient will be discharged home.He has been advised to keep himself hydrated .He will [facility] [place] [facility]. Management plan was discussed in detail with patient Education was provided.
== END 2017-12-22 14:29 | disposition home or self-care (01) | DRG 558 ==
LOC: ED 07:15 → ERH 10:41 → 5RNO 13:08
PROVIDERS: ADMIT Internal Medicine; ATTEND Internal Medicine
DX: M62.82 Rhabdomyolysis (principal); E86.0 Dehydration; R40.2412 Glasgow coma scale score 13-15, at arrival to emergency department

== ENCOUNTER 2019-01-27 08:13 | Emergency (ER) | payer SELFPAY ==
[2019-01-27 08:22] VITALS: BMI 24.7
[2019-01-27 08:38] VITALS: BP 115/62; PULSE 104; RESP 18; O2SAT 97
[2019-01-27] MEDS ORDERED: Lidocaine 2% Viscous 100 ml PO STA (08:42)
--- NOTE | 2019-01-27 08:49 | ED PDOC ---
Arrival/HPI - General Chief Complaint: Flu-like Symptoms Time Seen by Provider: 01/27/19 08:32 Historian: Patient - History of Present Illness Narrative History of Present Illness (Text): 01/27/19 08:41 23 year old M with no significant pmh presents complaining of sore throat, fever and body aches since yesterday, chills this morning. Patient admits to being in contact with sick family members who recently had similar symptoms. Tylenol failed to resolve any symptoms. Patient denies any rashes, headache, dizziness, chest pain, shortness of breath, dyspnea on exertion, cough, diaphoresis, abdominal pain, nausea, vomiting, diarrhea, back pain, neck pain, or any other complaint. Time/Duration: < week Symptom Onset: Sudden Symptom Course: Unchanged Activities at Onset: Light Context: Home Past Medical History - Provider Review Nursing Documentation Reviewed: Yes Primary Care Provider: Non [facility] Provider, - Past History Past History: No Previous - Infectious Disease Hx of Infectious Diseases: None - Tetanus Immunization Tetanus Immunization: Up to Date - Cardiac Hx Cardiac Disorders: No - Pulmonary Hx Respiratory Disorders: No - Neurological Hx Neurological Disorder: No - HEENT Hx HEENT Disorder: No - Renal Hx Renal Disorder: No - Endocrine/Metabolic Hx Endocrine Disorders: No - Hematological/Oncological Hx Blood Disorders: No - Integumentary Hx Dermatological Disorder: No - Musculoskeletal/Rheumatological Hx Musculoskeletal Disorders: No Hx Falls: No - Gastrointestinal Hx Gastrointestinal Disorders: No - Genitourinary/Gynecological Other/Comment: 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 - Psychiatric Hx Depression: No Hx Emotional Abuse: No Hx Physical Abuse: No Hx Substance Use: No - Past Surgical History Past Surgical History: No Previous - Anesthesia Hx Anesthesia: Yes Hx Anesthesia Reactions: No Hx Malignant Hyperthermia: No - Suicidal Assessment Feels Threatened In Home Enviroment: No Family/Social History - Physician Review Nursing Documentation Reviewed: Yes Family/Social History: Unknown Family HX Smoking Status: Never Smoked Hx Alcohol Use: Yes Hx Substance Use: No Hx Substance Use Treatment: No Allergies/Home Meds Allergies/Adverse Reactions: Allergies No Known Allergies Allergy (Verified 01/27/19 08:38) Review of Systems - Physician Review All systems were reviewed & negative as marked: Yes - Review of Systems Constitutional: Fevers ENT: Sore Throat. absent: Rhinorrhea, Epistaxis Respiratory: absent: SOB, Cough, Wheezing Cardiovascular: absent: Chest Pain, Palpitations, Edema, Syncope Gastrointestinal: absent: Abdominal Pain, Constipation, Diarrhea, Nausea, Vomiting, Hematochezia, Hematemesis Genitourinary Male: absent: Dysuria, Hematuria Skin: absent: Rash, Cellulitis Neurological: absent: Headache, Dizziness Physical Exam - Physical Exam Narrative Physical Exam (Text): 01/27/19 08:55 Gen: VS reviewed, alert, well developed, well nourished, nontoxic, mild distress. Febrile, tachycardic ENT: erythema to posterior pharynx, diffuse b/l exudate, no signs of tonsilar swelling. Eye: EOMI, PERRL. Neck: no JVD, supple, no adenopathy. CV: regular rate, regular rhythm, no rubs, no murmur, no gallops, S1, S2, pulses equal and strong. Pulm: no distress, clear to auscultation, no wheeze, no rhonchi, breath sounds equal, no rales. Abd: soft, nontender, no guarding, no rebound, no rigidity, normal bowel sounds. Ext: no edema. Skin: good color, no rash, no cyanosis. Psych: responds appropriately to questions, normal affect. Neuro: oriented x 3, CN2-12 intact grossly, motor intact, sensation intact. Vital Signs Temp Pulse Resp BP Pulse Ox 01/27/19 08:21 103.1 F H 104 H 18 115/62 97 Medical Decision Making ED Course and Treatment: 01/27/19 08:49 Impression: 23 year old M presents complaining of sore throat, fever and body aches since yesterday, chills this morning. Patient admits to being in contact with sick family members who recently had similar symptoms. Plan: -- Motrin -- Lidocaine -- Throat culture -- Rapid strep -- Reassess and disposition Prior Visits: Notes and results from previous visits were reviewed. Progress Notes: 01/27/19 09:54 patient seen for acute pharyngitis with multiple sick family contacts, likely viral, supportive care, patient is nontoxic appearing and stable for dc. Disposition/Present on Arrival - Present on Arrival Any Indicators Present on Arrival: No History of DVT/PE: No History of Uncontrolled Diabetes: No Urinary Catheter: No History of Decub. Ulcer: No History Surgical Site Infection Following: None - Disposition Have Diagnosis and Disposition been Completed?: Yes Diagnosis: Acute pharyngitis Disposition: HOME/ ROUTINE Disposition Time: 09:24 Patient Plan: Discharge Condition: STABLE Discharge Instructions (ExitCare): Sore Throat, Adult (DC) Additional Instructions: stay well hydrated (water). for now, until your throat heals, eeat and drink cold foods to help with the sore throat. hot foods or hard foods could make the pain worse. Prescriptions: Lidocaine 2% Viscous 15 ml MM Q3H #1 bottle Forms: reportbrain (French)
[2019-01-27 10:09] VITALS: TEMP 99.9
== END 2019-01-27 10:11 | disposition home or self-care (01) ==
LOC: ED 08:13
DX: J02.9 Acute pharyngitis, unspecified (principal)